=== PATIENT | male | born 1990 | race Caucasian/White ===

== ENCOUNTER 2018-08-06 16:23 | Inpatient (IN) ==
[2018-08-06] MEDS ORDERED: cefTRIAXone SODIUM 1,000 MG/50 ML BAG IV STA (16:48)
[2018-08-06] MEDS ORDERED: VANCOMYCIN CONSULT ACTIVE PRN (16:50)
[2018-08-06] MEDS ORDERED: VANCOMYCIN HCL 2,000 MG in SODIUM CHLORIDE 0.9% 500 ML IV ONE (16:50)
--- NOTE | 2018-08-06 17:19 | XRay Report ---
RIGHT THIRD FINGER 3 VIEWS HISTORY: Right third finger swelling COMPARISON: None. FINDINGS: There is no fracture or dislocation. Diffuse soft tissue swelling within the right third fi nger and dorsum of the hand.. No evidence for osteomyelitis. No radiopaque foreign bodies. IMPRESSION: Diffuse soft tissue swelling within the right third finger and dorsum of the hand. No underlying bony abnormality. Electronically signed by: Pillo Piña M.D. 08/06/2018 5:17 PM
[2018-08-06 17:48] LABS: Albumin Level 3.2 gm/dl (3.4-5.0); BUN Creatinine Ratio 11.7 (10-20); Calcium 8.5 mg/dl (8.5-10.1); Creatinine Clr Calc Pharmacy 143.9 ml/min; Est GFR (African American) 132.6; Est GFR (Non-African American) 114.4; Potassium 3.6 mmol/L (3.5-5.1)
[2018-08-06 17:51] LABS: Albumin Globulin Ratio 0.9 (0.9-2); Bilirubin,Total 0.3 mg/dl (0.2-1); Globulin 3.6 gm/dl (2.5-4.0); Total Protein 6.8 gm/dl (6.4-8.2)
[2018-08-06] MEDS: SODIUM CHLORIDE 0.9% 1000ML 1,000 ML IV SCH ×2 (17:54→18:42)
[2018-08-06 17:58] LABS: Basophils # (auto) 0.03 K/uL (0-0.2); Basophils % (auto) 0.4 %; Eosinophils % (auto) 2.8 %; Hematocrit (blood only) 32.2 % (42-52); Hemoglobin 11.7 g/dL (14.0-18.0); Immature Granulocytes # (auto) 0.01 K/uL (0.00-0.02); Immature Granulocytes % (auto) 0.1 %; Lymphocytes # (auto) 1.15 K/uL (1.2-3.4); Mean Corpuscular Hgb Conc 36.3 g/dL (32-36); Mean Corpuscular Volume 90.4 fL (80-100); Mean Platelet Volume 8.9 fL (7.4-10.4); Monocytes % (auto) 5.6 %; Neutrophils % (auto) 75.1 %; Platelet Count 222 K/uL (130-400); RDW Coefficient of Variation 12.7 % (11.5-14.5); RDW Standard Deviation 41.8 fL (36.4-46.3); Red Blood Count 3.56 M/uL (4.7-6.1); White Blood Count 7.19 K/uL (4.8-10.8)
[2018-08-06 18:12] LABS: Appearance Urine Clear (Clear); Bilirubin Urine Negative (Negative); Color Urine Yellow; Glucose Urine UA Negative (Negative); Ketones Urine Negative (Negative); Leukocyte Esterase Urine Negative (Negative); Nitrite Urine Negative (Negative); Protein Urine Negative (Negative); Specific Gravity Urine 1.019 (1.000-1.030); Urobilinogen Urine Negative (Negative)
[2018-08-06 18:31] LABS: Amphetamines+Metham, Urine Pos (Neg); Barbiturates, Urine Neg (Neg); Benzodiazepine, Urine Neg (Neg); Cocaine, Urine Neg (Neg); MDMA (Ecstacy), Urine Pos (Neg); Methadone, Urine Neg (Neg); Opiate, Urine Neg (Neg); Phencyclidine, Urine Neg (Neg)
[2018-08-06 21:12] LABS: Magnesium 1.9 mg/dl (1.8-2.4)
--- NOTE | 2018-08-06 21:18 | History & Physical Report ---
Date of Service August 06, 2018 Assessment & Plan (1) Cellulitis of right middle finger: Patient presented to ER with worsening erythema and edema to right middle finger x5 days with associated purulent discharge. Denies fever, chills, nausea, vomiting. Reported was seen in outside facility ER yesterday and given dose of IV antibiotics and placed on oral clindamycin however patient has not started yet Today in ER patient afebrile, P: Initially 120 down to 88, BP: 137/82, 98% on room air. WBC: 7, H/H: 11.7/32.2 (unsure of baseline) Right finger x-ray: Diffuse soft tissue swelling within the right third finger and dorsum of the hand. No underlying bony abnormality. Wound culture was obtained in ER In ER patient given Rocephin, vancomycin, 1 L NSS. ER contacted [facility]-Dr. Gaona (2) Tobacco abuse: Patient requesting nicotine patch Smoking cessation encouraged (3) Drug use: Reports smoking marijuana. Recently has been obtaining and taking Suboxone orally. Patient denies history of IV drug abuse Urine tox: + amphetamine/methamphetamine, ecstasy, marijuana Pt reports does not follow with a PCP Pt was seen with Dr Lemus. History and physical as above. Assessment and plan per Dr Lemus. History of Present Illness Chief Complaint: R finger swelling Primary Care Provider: NO PCP Pt is 28 y/o M with [facility] tobacco use, drug use presented to ER with complaint of right middle finger edema x5 days. Patient states had scab to distal right middle finger last week and 5 days ago noticed some swelling of distal finger which has since progressed to swelling and erythema of entire finger and extending to hand. Patient reports has been having some purulent drainage from the area. Complains of pain to the area and limited range of motion secondary to edema. At home he was trying ice soaks and warm water soaks with limited relief. Patient admits to using Suboxone that he obtained this week secondary to pain. Patient denies history of IV drug use. Reports was using a wire brush recently but is unaware of any foreign body. He denies any injury or trauma to the finger otherwise. Patient reports he was seen in [place] ER yesterday and he reports was given a dose of IV antibiotics and IV Toradol and was placed on oral clindamycin which patient reports just got filled today. He reports they had suggested I&D of area however patient denied. Denies fever/chills, diaphoresis, N/V/D/C, CAMEJO, dizziness, syncope, vision changes, neck pain, CP, SOB, orthopnea, palpitations, cough, sore throat, choking, otalgia, rhinorrhea, abdominal pain, paresthesias, weakness, other rashes, or urinary symptoms. Allergies Allergy/AdvReac Type Severity Reaction Status Date / Time No Known Allergies Allergy Unverified 08/06/18 16:57 Home Medications Home Medications Medication Instructions Recorded Confirmed Type clindamycin HCl 300 mg PO Q6H 08/06/18 08/06/18 History Past Med/Surg History Medical History Tobacco abuse (Chronic) Surgical History No history of previous surgery (Chronic) Family History Other Dyslipidemia Hypertension Social History Feels Safe at Home: Yes Smoking Status: Current every day smoker Cigarettes Per Day: 1 pack/day x 12 years Hx Alcohol Use: No Hx Substance Use: Yes substance use type: marijuana and prescription drug Review of Systems Review of Systems: All systems reviewed & are unremarkable except as noted in HPI & below Physical Exam Physical Exam: General: Disheveled, no distress, WDWN, nontoxic appearance Head: normocephalic, atraumatic Eyes: conjunctiva non-injected, anicteric ENT: normal inspection external ears, nose, mucous membranes moist Neck: supple, trachea midline Lungs: clear, no respiratory distress, no wheezing/rhonchi/rales CV: RRR, no murmur, no pretibial edema Abd: normal BS, soft, non-tender Ext: no cyanosis. Right hand: Right middle finger with significant edema, + erythema, + open area distal palmar aspect of finger with purulent drainage, limited flexion of finger secondary to edema, sensation to light touch intact. Edema from middle finger extends to MCP of hand. Distal pulses intact, brisk capillary refill Neuro: A&O x 3, no focal deficits noted, normal affect Skin: warm, dry, right finger/hand as above Results & Data Vital Signs (Past 12 Hours) Vital Signs Temp Pulse Pulse Resp BP BP Pulse Ox 08/06/18 20:00 88 18 149/96 H 97 08/06/18 18:45 90 15 152/93 H 97 08/06/18 18:01 86 15 132/94 99 08/06/18 16:33 36.7 C 120 H 20 137/82 98 Laboratory Results Short CBC 08/06/18 Range/Units 17:15 WBC 7.19 (4.8-10.8) K/uL Hgb 11.7 L (14.0-18.0) g/dL Hct 32.2 L (42-52) % Plt Count 222 (130-400) K/uL BMP 08/06/18 17:15 Sodium 137 Potassium 3.6 Chloride 104 Carbon Dioxide 28 BUN 11 Creatinine 0.92 Glucose 116 H Calcium 8.5 Liver Function 08/06/18 Range/Units 17:15 Total Bilirubin 0.3 (0.2-1) mg/dl AST 16 (15-37) U/L ALT 24 (12-78) U/L Alkaline Phosphatase 103 (45-117) U/L Albumin 3.2 L (3.4-5.0) gm/dl Urine 08/06/18 Range/Units 17:52 Urine Color Yellow Urine Appearance Clear (Clear) Urine pH 5.0 (4.5-7.5) Ur Specific [place] 1.019 (1.000-1.030) Urine Protein Negative (Negative) Urine Glucose (UA) Negative (Negative) Diagnostic Findings Right finger x-ray: IMPRESSION: Diffuse soft tissue swelling within the right third finger and dorsum of the hand. No underlying bony abnormality. Supervising Physician Co-Signing Physician Notes IM ATTENDING : Patient seen and examined. History obtained from patient, family, and records. Preceding documentation by Ms. Priscila Ahuja PA-C reviewed. FINAL ASSESSMENT AND PLAN as follows : Cellulitis right hand secondary to infected wound, right middle finger No sepsis Situational hypertension Acute on chronic chronic anemia, hemoglobin noted to be 13 from outpatient blood work 2016, no previous work-up Hyperglycemia rule out DM ongoing tobacco abuse GMF Follow wound cultures, Doxycycline Local measures for right hand cellulitis Orthopedics consult RE right hand cellulitis (ER provider already in touch with Dr. Gaona) Anemia work-up Check hemoglobin A1c nicotine patch DVT prophylaxis. SCDs Full code Patient's mother requesting updates from providers. Ms. Loida Green, contact #[phone].
[2018-08-06] MEDS: NICOTINE 21 MG/24 HR TDSY TD SCH (21:55)
--- NOTE | 2018-08-06 22:17 | Emergency Department Note ---
Entered by Surekha Linares acting as a scribe for Jeb Varela DO History of Present Illness General Chief complaint: Finger Pain Stated complaint: R MIDDLE FINGER AND HAND SWELLED History of Present Illness Provider complaint: finger pain Onset (ago): day(s) 4 Location: upper extremity (rigth middle finger) Pain Consistency: + other (worsening) Maximum Pain Intensity: 8 Relieved By: not by medication (antibiotics) Associated symptoms: + other (+leg swelling, +drainage); no fever/chills (- fever) The patient is a 28 year old male who presents to the Emergency Room with complaints of worsening right middle finger pain. The patient states that on Thursday he woke up and his right middle finger pain and he is unaware of the c ause. He states that the pain has worsened since then. He states that on Thursday he went to [facility] and he was not happy with that treatment, but they sent him home with antibiotics. He states that the antibiotics have no alleviated the pain. The patient reports that his legs have been swelling recently, but denies any fever. He reports that there was drainage from the finger last night. The pa trano denies using IV drugs and he has gotten his Tetanus shot last night. Home Medications Home Medications Medication Instructions Recorded Confirmed Type clindamycin HCl 300 mg PO Q6H 08/06/18 08/06/18 History Allergies Allergy/AdvReac Type Severity Reaction Status Date / Time No Known Allergies Allergy Unverified 08/06/18 16:57 Past Med/Surg History Medical History Tobacco abuse (Chronic) Surgical History No history of previous surgery (Chronic) Family History Other Dyslipidemia Hypertension Social History Feels Safe at Home: Yes Smoking Status: Current every day smoker Cigarettes Per Day: 1 pack/day x 12 years Hx Alcohol Use: No Hx Substance Use: Yes substance use type: marijuana and prescription drug Review of Systems See HPI for pertinent positives & negatives. and A total of 10 systems reviewed and were otherwise negative Physical Exam Vital Signs Vital Signs - 24 hr 08/06/18 16:33 08/06/18 18:01 08/06/18 18:45 Temperature 36.7 C Temperature Source Oral Sepsis Recent Fever Within 48 Hours No Sepsis New/Unexplained Change in Mental Status No Sepsis Action Taken by Nursing No Action Required Pulse Rate 120 H Pulse Rate [Left Finger] 86 90 Pulse Rhythm [Left Finger] Regular Regular Respiratory Rate 20 15 15 Respiratory Effort / Characteristics Non-Labored Non-Labored Respiratory Depth Normal Normal Respiratory Pattern Regular Regular Blood Pressure 137/82 Blood Pressure [Left Arm] 132/94 152/93 H Blood Pressure Mean 100 Blood Pressure Mean [Left Arm] 106 112 Blood Pressure Position [Left Arm] Pulse Oximetry 98 99 97 Oxygen Delivery Method Room Air Room Air Room Air 08/06/18 20:00 08/06/18 21:53 Temperature Temperature Source Sepsis Recent Fever Within 48 Hours Sepsis New/Unexplained Change in Mental Status Sepsis Action Taken by Nursing Pulse Rate Pulse Rate [Left Finger] 88 87 Pulse Rhythm [Left Finger] Respiratory Rate 18 18 Respiratory Effort / Characteristics Non-Labored Spontaneous Non-Labored Spontaneous Respiratory Depth Normal Normal Respiratory Pattern Regular Regular Blood Pressure Blood Pressure [Left Arm] 149/96 H 140/90 Blood Pressure Mean Blood Pressure Mean [Left Arm] 113 106 Blood Pressure Position [Left Arm] Sitting Pulse Oximetry 97 98 Oxygen Delivery Method Room Air Room Air GENERAL: standing in room, disheveled, alert, well nourished, no distress, non- toxic EYE EXAM: normal conjunctiva, PERRL and EOM's grossly intact OROPHARYNX: no exudate, no erythema, lips, buccal mucosa, and tongue normal and mucous membranes are moist NECK: supple, no nuchal rigidity, no adenopathy, non-tender LUNGS: Clear to auscultation. Normal chest wall mechanics HEART: tachycardic, no murmurs, S1 normal and S2 normal ABDOMEN: abdomen soft, non-tender, normo-active bowel sounds, no masses, no rebound or guarding. BACK: Back is symmetrical on inspection and there is no deformity, no midline tenderness, no CVA tenderness. SKIN: tract ana paula in bilateral a/c, no rashes and no bruising UPPER EXTREMITIES: Right 3rd digit swollen. Held in flexion. Open wound next to DIP on lateral aspect, yellow drainage. Erythema tracking to MCP joint. Edema in hand. 2/4 radial pulse. LOWER EXTREMITIES: No pitting edema. NEURO EXAM: Normal sensorium, cranial nerves II-XII grossly intact, normal speech, no gross weakness of legs. Course ED COURSE: Vital signs were reviewed and showed tachycardia. The patients medical record was reviewed The above diagnostic studies were performed and reviewed. ED treatments and interventions as stated above. 8: The patient was evaluated in room B7. A complete history and physical examination was performed. 2130: I discussed the patient's case with Dr. Nikolas Arceoist, where he will accept the patient for further evaluation. 2138: Upon reevaluation, the patient is [].I discussed my findings with the [patient] and [] understands and agrees with the treatment plan. Based on the patients age, coexisting illnesses, exam and lab findings the decision to treat as an [inpatient][outpatient] was made. The patient remained stable while under my care. [The patient appeared well at the time of discharge.] [The patient will be evaluated for further management.] Reevaluation(s) Reevaluation #1: Dr. Nikolas Vaca Time: 21:31 Administered Medications Nicotine (Nicoderm Cq) 21 mg TD QAM RANI Stop: 09/05/18 21:19 Last Admin: 08/06/18 21:55 Dose: 21 mg Documented by: [id number] Discontinued Medications Sodium Chloride (Nss 1000ml) 1,000 mls @ 999 mls/hr IV .Q1H1M RANI Stop: 08/06/18 19:00 Last Infusion: 08/06/18 20:06 Dose: 0 mls/hr Documented by: [id number] Admin: 08/06/18 18:42 Dose: 999 mls/hr Documented by: [id number] Infusion: 08/06/18 18:42 Dose: 0 mls/hr Documented by: [id number] Admin: 08/06/18 17:54 Dose: 999 mls/hr Documented by: [id number] Ceftriaxone Sodium (Rocephin) 1,000 mg in 50 mls @ 100 mls/hr IV NOW STA Stop: 08/06/18 17:17 Last Infusion: 08/06/18 18:28 Dose: 0 mls/hr Documented by: [id number] Admin: 08/06/18 17:53 Dose: 100 mls/hr Documented by: [id number] Vancomycin HCl 2,000 mg/ (Sodium Chloride) 540 mls @ 200 mls/hr IV NOW ONE; Protocol Stop: 08/06/18 19:31 Last Infusion: 08/06/18 21:35 Dose: 0 mls/hr Documented by: [id number] Admin: 08/06/18 18:42 Dose: 200 mls/hr Documented by: [id number] Medical Decision Making Differential Diagnosis Differential diagnosis: Etiologies such as cellulitis, abscess, MRSA infection, DVT, necrotizing fasciitis, dermatitis, drug eruption, as well as others were entertained. Medical Records Attestation: I reviewed the patient's medical records. Home Medications Current Medication List: was personally reviewed by me Laboratory Data Attestation: I reviewed the patient's lab results. Result diagrams: 08/06/18 17:15 08/06/18 17:15 Lab Results 08/06/18 08/06/18 08/06/18 Range/Units 17:15 17:15 17:15 WBC 7.19 (4.8-10.8) K/uL RBC 3.56 L (4.7-6.1) M/uL Hgb 11.7 L (14.0-18.0) g/dL Hct 32.2 L (42-52) % MCV 90.4 (80-100) fL MCH 32.9 (25-34) pg MCHC 36.3 H (32-36) g/dL RDW Std Deviation 41.8 (36.4-46.3) fL RDW Coeff of Frank 12.7 (11.5-14.5) % Plt Count 222 (130-400) K/uL MPV 8.9 (7.4-10.4) fL Immature Gran % (Auto) 0.1 % Neut % (Auto) 75.1 % Lymph % (Auto) 16.0 % Warren % (Auto) 5.6 % Eos % (Auto) 2.8 % Baso % (Auto) 0.4 % Immature Gran # (Auto) 0.01 (0.00-0.02) K/uL Neut # (Auto) 5.40 (1.4-6.5) K/uL Lymph # (Auto) 1.15 L (1.2-3.4) K/uL Warren # (Auto) 0.40 (0.11-0.59) K/uL Eos # (Auto) 0.20 (0-0.5) K/uL Baso # (Auto) 0.03 (0-0.2) K/uL Sodium 137 (136-145) mmol/L Potassium 3.6 (3.5-5.1) mmol/L Chloride 104 (98-107) mmol/L Carbon Dioxide 28 (21-32) mmol/L Anion Gap 5.0 (3-11) BUN 11 (7-18) mg/dl Creatinine 0.92 (0.6-1.4) mg/dl Est Cr Clr Drug Dosing 143.9 ml/min Est GFR ( Amer) 132.6 Est GFR (Non-Af Amer) 114.4 BUN/Creatinine Ratio 11.7 (10-20) Glucose 116 H (70-99) mg/dl Calcium 8.5 (8.5-10.1) mg/dl Magnesium (1.8-2.4) mg/dl Total Bilirubin 0.3 (0.2-1) mg/dl AST 16 (15-37) U/L ALT 24 (12-78) U/L Alkaline Phosphatase 103 (45-117) U/L Total Protein 6.8 (6.4-8.2) gm/dl Albumin 3.2 L (3.4-5.0) gm/dl Globulin 3.6 (2.5-4.0) gm/dl Albumin/Globulin Ratio 0.9 (0.9-2) TSH (0.300-4.500) uIu/ml Urine Color Urine Appearance (Clear) Urine pH (4.5-7.5) Ur Specific [place] (1.000-1.030) Urine Protein (Negative) Urine Glucose (UA) (Negative) Urine Ketones (Negative) Urine Blood (Negative) Urine Nitrite (Negative) Urine Bilirubin (Negative) Urine Urobilinogen (Negative) Ur Leukocyte Esterase (Negative) Urine Opiates Screen (Neg) Ur Methadone, Qual (Neg) Urine Barbiturates (Neg) Ur Phencyclidine (PCP) (Neg) U Amphetamin/Meth Scrn (Neg) MDMA (Ecstasy) Screen (Neg) U Benzodiazepines Scrn (Neg) Ur Cocaine Metabolite (Neg) U Marijuana (THC) Screen (Neg) Ethyl Alcohol mg/dL < 3.0 (0-3) mg/dl 05/24/19 05/24/19 05/24/19 Range/Units 17:15 17:52 17:52 WBC (4.8-10.8) K/uL RBC (4.7-6.1) M/uL Hgb (14.0-18.0) g/dL Hct (42-52) % MCV (80-100) fL MCH (25-34) pg MCHC (32-36) g/dL RDW Std Deviation (36.4-46.3) fL RDW Coeff of Frank (11.5-14.5) % Plt Count (130-400) K/uL MPV (7.4-10.4) fL Immature Gran % (Auto) % Neut % (Auto) % Lymph % (Auto) % Warren % (Auto) % Eos % (Auto) % Baso % (Auto) % Immature Gran # (Auto) (0.00-0.02) K/uL Neut # (Auto) (1.4-6.5) K/uL Lymph # (Auto) (1.2-3.4) K/uL [place] # (Auto) (0.11-0.59) K/uL Eos # (Auto) (0-0.5) K/uL Baso # (Auto) (0-0.2) K/uL Sodium (136-145) mmol/L Potassium (3.5-5.1) mmol/L Chloride (98-107) mmol/L Carbon Dioxide (21-32) mmol/L Anion Gap (3-11) BUN (7-18) mg/dl Creatinine (0.6-1.4) mg/dl Est Cr Clr Drug Dosing ml/min Est GFR ( Amer) Est GFR (Non-Af Amer) BUN/Creatinine Ratio (10-20) Glucose (70-99) mg/dl Calcium (8.5-10.1) mg/dl Magnesium 1.9 (1.8-2.4) mg/dl Total Bilirubin (0.2-1) mg/dl AST (15-37) U/L ALT (12-78) U/L Alkaline Phosphatase (45-117) U/L Total Protein (6.4-8.2) gm/dl Albumin (3.4-5.0) gm/dl Globulin (2.5-4.0) gm/dl Albumin/Globulin Ratio (0.9-2) TSH 1.270 (0.300-4.500) uIu/ml Urine Color Yellow Urine Appearance Clear (Clear) Urine pH 5.0 (4.5-7.5) Ur Specific [place] 1.019 (1.000-1.030) Urine Protein Negative (Negative) Urine Glucose (UA) Negative (Negative) Urine Ketones Negative (Negative) Urine Blood Negative (Negative) Urine Nitrite Negative (Negative) Urine Bilirubin Negative (Negative) Urine Urobilinogen Negative (Negative) Ur Leukocyte Esterase Negative (Negative) Urine Opiates Screen Neg (Neg) Ur Methadone, Qual Neg (Neg) Urine Barbiturates Neg (Neg) Ur Phencyclidine (PCP) Neg (Neg) U Amphetamin/Meth Scrn Pos H (Neg) MDMA (Ecstasy) Screen Pos H (Neg) U Benzodiazepines Scrn Neg (Neg) Ur Cocaine Metabolite Neg (Neg) U Marijuana (THC) Screen Pos H (Neg) Ethyl Alcohol mg/dL (0-3) mg/dl Imaging Data Radiologist's Impression: Radiology results as stated below per my review and the radiologist's interpretation: RIGHT THIRD FINGER 3 VIEWS HISTORY: Right third finger swelling COMPARISON: None. FINDINGS: There is no fracture or dislocation. Diffuse soft tissue swelling within the right third finger and dorsum of the hand.. No evidence for osteomyelitis. No radiopaque foreign bodies. IMPRESSION: Diffuse soft tissue swelling within the right third finger and dorsum of the hand. No underlying bony abnormality. Electronically signed by: Pillo Piña M.D. 08/06/2018 5:17 PM Blood Pressure Blood Pressure Findings: Elevated blood pressure Blood Pressure Disposition: Referred to patients primary care provider [facility] Narrative Patient is a 28-year-old male who presents the ER for swelling of his right digi t. On exam he appears to have track giang in bilateral antecubital but denies any other drug use. Labs were obtained and shows a hemoglobin of 11.7. No fevers. BMP with LFTs and bilirubin and TSH was unremarkable. UA was negative. Tox was positive for amphetamines ecstasy and marijuana all which he denied as he notes he uses no drugs. Alcohol was negative. X-ray of his digit was unremarkable. Bedside ultrasound does show what appears to be some pus located along the lateral aspect of the digit. I applied some pressure and a large amount of green/yellow purulent material was removed from the wound. As his digit is significantly swollen held in flexion with significant pain with ext ension I do favor that this most consistent with tenosynovitis. Do favor he requires IV antibiotics. He was given IV vancomycin and Rocephin and updated bedside admitted for further work-up. Did discuss with orthopedic surgery who will see him in the morning. Impression & Plan Tenosynovitis, Cellulitis of right middle finger, Drug use Discharge Plan Visit Data Chief Complaint: Finger Pain Stated Complaint: R MIDDLE FINGER AND HAND SWELLED ED Provider: Jeb Varela Discharge Problem: Tenosynovitis, Cellulitis of right middle finger, Drug use Forms Stand Alone Forms: [facility] Prescriptions Prescriptions: No Action clindamycin HCl 300 mg capsule 300 mg PO Q6H RF: 0 Referrals Referrals: PCP,NO [Primary Care Provider] - The scribe's documentation has been prepared under my direction and personally reviewed by me in its entirety. I confirm that the note above accurately re flects all work, treatment, procedures, and medical decision making performed by me.
[2018-08-06] MEDS ORDERED: IBUPROFEN 200 MG TAB PO PRN (23:13)
[2018-08-06] MEDS ORDERED: LORazepam 0.25 MG/0.5 ML VIAL IV PRN (23:13)
[2018-08-06] MEDS ORDERED: ACETAMINOPHEN 325 MG TAB PO PRN (23:13)
[2018-08-06] MEDS ORDERED: PROMETHAZINE HCL 12.5 MG in SODIUM CHLORIDE 0.9% 50 ML IV PRN (23:13)
[2018-08-07] MEDS: NSS + 20MEQ KCL 20 MEQ/1,000 ML BAG IV SCH ×2 (00:16→15:37)
[2018-08-07 06:16] LABS: Basophils # (auto) 0.01 K/uL (0-0.2); Basophils % (auto) 0.2 %; Eosinophils # (auto) 0.15 K/uL (0-0.5); Eosinophils % (auto) 2.5 %; Hematocrit (blood only) 33.3 % (42-52); Hemoglobin 11.7 g/dL (14.0-18.0); Immature Granulocytes # (auto) 0.01 K/uL (0.00-0.02); Immature Granulocytes % (auto) 0.2 %; Lymphocytes # (auto) 1.32 K/uL (1.2-3.4); Lymphocytes % (auto) 22.3 %; Mean Corpuscular Hgb Conc 35.1 g/dL (32-36); Mean Corpuscular Volume 90.7 fL (80-100); Monocytes # (auto) 0.42 K/uL (0.11-0.59); Monocytes % (auto) 7.1 %; Neutrophils % (auto) 67.7 %; Platelet Count 208 K/uL (130-400); RDW Coefficient of Variation 12.6 % (11.5-14.5); RDW Standard Deviation 41.8 fL (36.4-46.3); Red Blood Count 3.67 M/uL (4.7-6.1); Reticulocyte % 1.1 % (0.5-2.0); Reticulocytes # 0.04 10^6/uL (0.02-0.10); White Blood Count 5.91 K/uL (4.8-10.8)
[2018-08-07 06:55] LABS: Ferritin 137.7 ng/ml (8-388)
[2018-08-07 08:24] LABS: Folate (Folic Acid) 12.54 ng/ml (>5.38)
[2018-08-07 08:35] LABS: Estimated Average Glucose 88 mg/dl
[2018-08-07] MEDS ORDERED: DOXYCYCLINE HYCLATE 100 MG CAP PO SCH ×2 (09:00→18:00)
[2018-08-07] MEDS: KETOROLAC TROMETHAMINE 15 MG/ML VIAL IV PRN ×2 (10:02→15:41)
[2018-08-07] MEDS: NICOTINE 21 MG/24 HR TDSY TD SCH (10:02)
[2018-08-07] MEDS ORDERED: DAPTOMYCIN CONSULT ACTIVE PRN (11:52)
[2018-08-07] MEDS ORDERED: MAGNESIUM SULFATE CRYSTALS 227 GM CRT EXT PRN (14:47)
--- NOTE | 2018-08-07 14:57 | Anesthesiology Consultation ---
Date of Service August 07, 2018 Assessment & Plan (1) Encounter for pre-operative examination: Chart Review Chart Review: Acceptable Risk for Surgery and Patient NOT seen in Pre Admission Testing Consults Requested none ASA ASA2 History Height/Weight Height: 5 ft 11 in Weight: 94.9 kg Allergies Allergy/AdvReac Type Severity Reaction Status Date / Time No Known Allergies Allergy Unverified 08/06/18 16:57 Medications Home Medications Medication Instructions Recorded Confirmed Last Taken clindamycin HCl 300 mg PO Q6H 08/06/18 08/06/18 Unknown Active Medications Generic Name Dose Route Start Last Admin Trade Name Freq PRN Reason Stop Dose Admin Potassium Chloride/Sodium Chloride 20 meq in 1,000 mls @ 125 mls/hr 08/07/18 00:00 08/07/18 00:16 Normal Saline W/20 Meq Kcl IV 09/06/18 00:00 60 mls/hr .Q8H RANI Administration Ketorolac Tromethamine 15 mg 08/06/18 23:13 08/07/18 10:02 Toradol IV 08/11/18 23:12 15 mg Q4H PRN Administration Pain Miscellaneous 1 ea 08/07/18 08:59 08/07/18 10:01 Remove Nicoderm Patch N/A 09/06/18 08:58 1 ea HS RANI Administration Nicotine 21 mg 08/06/18 21:20 08/07/18 10:02 Nicoderm Cq TD 09/05/18 21:19 21 mg QAM RANI Administration Past Medical History Medical History Drug use (Chronic) Tobacco abuse (Chronic) Past Family History Family History Other Dyslipidemia Hypertension Past Surgical History Surgical History No history of previous surgery (Chronic) Social History Smoking Status: Current every day smoker tobacco type: cigarettes Smoking cigarettes per day: 1 pack/day x 12 years Do You Dip or Chew Tobacco: No Hx Alcohol Use: No Hx Substance Use: Yes substance use type: marijuana Physical Exam Vital Signs Last Vital Signs Temp 36.8 C 08/07/18 07:49 Pulse 96 H 08/07/18 07:49 Resp 20 08/07/18 07:49 BP 143/83 H 08/07/18 07:49 Pulse Ox 97 08/07/18 07:49
[2018-08-07] MEDS ORDERED: DAPTOmycin 300 MG in SYRINGE 0 ML IV SCH (17:00)
--- NOTE | 2018-08-07 17:04 | Consultation Report ---
DATE OF CONSULTATION: 08/07/2018 CHIEF COMPLAINT: Right middle finger pain. HISTORY OF PRESENT ILLNESS: Leroy is a pleasant gentleman. He is 28. He has had a several-day duration of associated swelling, erythema to his right index finger. He fortunately denied any fever, sweats, or chills. He came to the Emergency Room yesterday, was admitted. Unfortunately, no one contacted me personally about the case until approximately 2:00 in the afternoon on Thursday. In any event, he is slightly better today than he was yesterday and his pain is relatively controlled. He has a fusiform and uniform swelling, some erythema, some edema, but no Kanavel sign indicative of a tenosynovitis of the flexor tendon. There is some pus formation and he is expressing the pus. PAST MEDICAL HISTORY: Negative for hypertension, COPD, or diabetes. SOCIAL HISTORY: Does have a social history of tobacco use and marijuana use. PAST SURGICAL HISTORY: No prior surgeries. REVIEW OF SYSTEMS: Denies any fevers, sweats, or chills. Ear, nose and throat negative. Denies chest pain or palpitations. No nausea or vomiting. No urgency or frequency. OBJECTIVE: VITAL SIGNS: Temperature 36.7, pulse 86, respirations 20, blood pressure normal. LABORATORIES: White cell count 7.9, hemoglobin 11.7. X-RAYS: Demonstrated diffuse swelling of the right long finger. ASSESSMENT: Cellulitis, right hand; infection, right middle finger. PLAN: We will continue with the IV antibiotics currently. I will get him on some warm soaks to the finger. We are letting him eat this afternoon. We will keep him n.p.o. after midnight. I will be seeing the patient early tomorrow morning and perhaps if he is worse or not improved, surgery could be warranted and indicated and I explained this to the patient.
--- NOTE | 2018-08-07 17:12 | Hospitalist Progress Note ---
Date of Service August 07, 2018 Assessment & Plan (1) Cellulitis of right middle finger: per admitting [facility] notes Patient presented to ER with worsening erythema and edema to right middle finger x5 days with associated purulent discharge. Denies fever, chills, nausea, vomiting. Reported was seen in outside facility ER yesterday and given dose of IV antibiotics and placed on oral clindamycin however patient has not started yet Today in ER patient afebrile, P: Initially 120 down to 88, BP: 137/82, 98% on room air. WBC: 7, H/H: 11.7/32.2 (unsure of baseline) Right finger x-ray: Diffuse soft tissue swelling within the right third finger and dorsum of the hand. No underlying bony abnormality. Wound culture was obtained in ER In ER patient given Rocephin, vancomycin, 1 L NSS. ER contacted ortho-Dr. Gaona 08/07 Wound drainage: Staph species- pending Sens Dapto IV ordered Ortho consulted, discussed with Dr. Gaona- plan to observe with IV Abx, re-eval tomorrow if I&D needed patient agreeable with plan at around 430, patient verbalized that he prefers to leave AMA as [facility] [place] and he wants to see him tonight patient was highly encouraged to stay , discussed at length, in detail with patient, if he leaves, infection can get worse and may lead to sepsis, paralysis, amputation of the extremities, even he verbalized agreement and understanding of above and would still like to leave AMA Rx for Doxycycline 100mg BID x 10 days sent to his pharmacy advised to return to ER immediately if with worsening of symptoms (2) Tobacco abuse: Nicotine patch ordered Smoking cessation encouraged (3) Drug use: Reports smoking marijuana. Recently has been obtaining and taking Suboxone orally. Patient denies history of IV drug abuse Urine tox: + amphetamine/methamphetamine, ecstasy, marijuana -- counseled against illicit drug use will set up with PCP this week for ff up Subjective ff up for cellulitis of the right finger seen resting in bed, comfortable seen with DEMETRIUS Banks throughout whole encounter states he feels better today right finger and hand swelling/redness is much better able to move finger and hand better denies fever/chills no other symptoms Review of Systems Review of Systems: All systems reviewed & are unremarkable except as noted in HPI & below Physical Exam Physical Exam: General- oriented x 3, not in distress, speaks in sentences with no effort or accessory muscle use Head- atraumatic Eyes- PERRL, EOMI, anicteric ENT- oropharynx clear Neck- supple, no JVD, no adenopathy, no thyromegaly; carotids +2/2, no bruits appreciated Lungs- clear to auscultation bilaterally, no rales/wheezes Heart- normal rate, regular rhythm; no murmur, no gallop, no rub appreciated Abdomen- normal bowel sounds, nondistended, soft, nontender, no masses or hepatosplenomegaly Extremities- right middle finger: moderate edema, erythema; no tenderness; partial ROM right dorsum of the hand: mild erythema, no edema/tenderness no pretibial edema, no calf tenderness; peripheral pulses intact Neuro- alert, oriented x 3; CN 2-12 grossly intact; motor 5/5 bilaterally;sensation 100% on all extremities; no other gross focal neurologic deficits Skin- warm & dry Results & Data Vital Signs (Past 12 Hours) Vital Signs Temp Pulse Resp BP Pulse Ox 08/07/18 15:14 36.6 C 78 18 127/81 100 08/07/18 07:49 36.8 C 96 H 20 143/83 H 97
--- NOTE | 2018-08-07 17:13 | Discharge Summary ---
Date of Service August 07, 2018 Admission HPI Per Admitting Provider Pt is 28 y/o M with PMH tobacco use, drug use presented to ER with complaint of right middle finger edema x5 days. Patient states had scab to distal right middle finger last week and 5 days ago noticed some swelling of distal finger which has since progressed to swelling and erythema of entire finger and extending to hand. Patient reports has been having some purulent drainage from the area. Complains of pain to the area and limited range of motion secondary to edema. At home he was trying ice soaks and warm water soaks with limited relief. Patient admits to using Suboxone that he obtained this week secondary to pain. Patient denies history of IV drug use. Reports was using a wire brush recently but is unaware of any foreign body. He denies any injury or trauma to the finger otherwise. Patient reports he was seen in [facility] yesterday and he reports was given a dose of IV antibiotics and IV Toradol and was placed on oral clindamycin which patient reports just got filled today. He reports the y had suggested I&D of area however patient denied. Denies fever/chills, diaphoresis, N/V/D/C, CAMEJO, dizziness, syncope, vision changes, neck pain, CP, SOB, orthopnea, palpitations, cough, sore throat, choking, otalgia, rhinorrhea, abdominal pain, paresthesias, weakness, other rashes, or urinary symptoms. Admission Exam Per Admitting Provider Physical Exam: General: Disheveled, no distress, WDWN, nontoxic appearance Head: normocephalic, atraumatic Eyes: conjunctiva non-injected, anicteric ENT: normal inspection external ears, nose, mucous membranes moist Neck: supple, trachea midline Lungs: clear, no respiratory distress, no wheezing/rhonchi/rales CV: RRR, no murmur, no pretibial edema Abd: normal BS, soft, non-tender Ext: no cyanosis. Right hand: Right middle finger with significant edema, + erythema, + open area distal palmar aspect of finger with purulent drainage, limited flexion of finger secondary to edema, sensation to light touch intact. Edema from middle finger extends to MCP of hand. Distal pulses intact, brisk capillary refill Neuro: A&O x 3, no focal deficits noted, normal affect Skin: warm, dry, right finger/hand as above Principal Diagnosis RIGHT FINGER AND HAND CELLULITIS Discharge Exam General- oriented x 3, not in distress, speaks in sentences with no effort or accessory muscle use Head- atraumatic Eyes- PERRL, EOMI, anicteric ENT- oropharynx clear Neck- supple, no JVD, no adenopathy, no thyromegaly; carotids +2/2, no bruits appreciated Lungs- clear to auscultation bilaterally, no rales/wheezes Heart- normal rate, regular rhythm; no murmur, no gallop, no rub appreciated Abdomen- normal bowel sounds, nondistended, soft, nontender, no masses or hepatosplenomegaly Extremities- right middle finger: moderate edema, erythema; no tenderness; partial ROM right dorsum of the hand: mild erythema, no edema/tenderness no pretibial edema, no calf tenderness; peripheral pulses intact Neuro- alert, oriented x 3; CN 2-12 grossly intact; motor 5/5 bilaterally;sensation 100% on all extremities; no other gross focal neurologic deficits Skin- warm & dry Discharge Data Allergies Allergy/AdvReac Type Severity Reaction Status Date / Time No Known Allergies Allergy Unverified 08/06/18 16:57 Consultations 08/06/18 20:31 ED Decision to Admit Stat 08/06/18 23:13 Consult Orthopedic Surgery Routine Procedures Performed Operation Date: 08/08/18 07:30 <No data on this case meets the specified criteria> RIGHT THIRD FINGER 3 VIEWS HISTORY: Right third finger swelling COMPARISON: None. FINDINGS: There is no fracture or dislocation. Diffuse soft tissue swelling within the right third finger and dorsum of the hand.. No evidence for osteomyelitis. No radiopaque foreign bodies. IMPRESSION: Diffuse soft tissue swelling within the right third finger and dorsum of the hand. No underlying bony abnormality. Hospital Course (1) Cellulitis of right middle finger: per admitting [facility] notes Patient presented to ER with worsening erythema and edema to right middle finger x5 days with associated purulent discharge. Denies fever, chills, nausea, vomiting. Reported was seen in outside facility ER yesterday and given dose of IV antibiotics and placed on oral clindamycin however patient has not started yet Today in ER patient afebrile, P: Initially 120 down to 88, BP: 137/82, 98% on room air. WBC: 7, H/H: 11.7/32.2 (unsure of baseline) Right finger x-ray: Diffuse soft tissue swelling within the right third finger and dorsum of the hand. No underlying bony abnormality. Wound culture was obtained in ER In ER patient given Rocephin, vancomycin, 1 L NSS. ER contacted ortho-Dr. Gaona 08/07 Wound drainage: Staph species- pending Sens Dapto IV ordered Ortho consulted, discussed with Dr. Gaona- plan to observe with IV Abx, re-eval tomorrow if I&D needed patient agreeable with plan at around 430, patient verbalized that he prefers to leave AMA as his Dad is leaving the country this evening and he wants to see him tonight patient was highly encouraged to stay , discussed at length, in detail with patient, if he leaves, infection can get worse and may lead to sepsis, paralysis, amputation of the extremities, even he verbalized agreement and understanding of above and would still like to leave AMA Rx for Doxycycline 100mg BID x 10 days sent to his pharmacy advised to return to ER immediately if with worsening of symptoms (2) Tobacco abuse: Nicotine patch ordered Smoking cessation encouraged (3) Drug use: Reports smoking marijuana. Recently has been obtaining and taking Suboxone orally. Patient denies history of IV drug abuse Urine tox: + amphetamine/methamphetamine, ecstasy, marijuana -- counseled against illicit drug use will set up with PCP this week for ff up Total Time Total Time Spent Total Time Spent (In Minutes): 60 MINUTES Discharge Plan Discharge Items Patient Disposition: Home - Self-Care Reason For Visit: CELLULITIS Discharge Diagnosis: RIGHT FINGER AND HAND CELLULITIS Discharge Goals: Diagnostic testing Activity: As commented below Activity Comment: DO NOT RETURN TO WORK UNTIL FF UP WITH PRIMARY CARE PHYSICIAN Lifting: Wait until after follow-up appointment Exercise/Sports: Wait until after follow-up appointment Driving/Machine Use Comment: NO DRIVING UNTIL RE-EVALUATED BY PRIMARY CARE PHYSICIAN Non-emergency contact: Primary Care Provider Call non-emergency contact if: you have any medication questions Follow-up/Referrals: PCP,NO [Primary Care Provider] - Diet: Regular Addtl Provider Instructions: RETURN TO ER IMMEDIATELY IF WITH WORSENING OF REDNESS, SWELLING, DISCHARGE ON YOUR HAND/ARM, FEVER/CHILLS, WEAKNESS. FINISH YOUR ANTIBIOTIC COURSE PRESCRIBED. STAY WELL HYDRATED. FOLLOW UP WITH PRIMARY CARE PHYSICIAN THIS COMING WEEK. THE [facility] IN [place] WILL BE CALLING YOU FOR THE APPOINTMENT SOON. Prescriptions: New doxycycline hyclate 100 mg Capsule 100 mg PO BID 10 Days Qty: 20 RF: 0 Discontinued clindamycin HCl 300 mg capsule 300 mg PO Q6H RF: 0 Stand-Alone Forms: [facility] Discharge Orders: Discharge Order (Routine); Ordered 08/07/18 Ordered By: Jayro Esposito Admission Data Admit Date/Time: 08/06/18 21:52 Attending Provider: Jayro Esposito Admit Provider: Gregorio Lemus Primary Care Provider: PCP,NO Other Providers: Gregorio Lemus ; Avi Gaona Service: Medical
[2018-08-12 11:54] LABS: Amphetamine Urine, Confirm 3610 NG/ML (CUTOF=250); Marijuana Quant, GCMS Urine 28 NG/ML (CUTOFF=5)
== END 2018-08-07 17:30 | disposition left against medical advice (07) | DRG 603 ==
LOC: ED 16:23 → 4W 21:52